=== PATIENT | female | born 1990 | race African-American/Black ===

== ENCOUNTER → 2017-10-08 09:02 | Outpatient (CLI) | payer OTHER, MEDICAID, SELFPAY ==
--- NOTE | 2017-10-08 | DI.US.S_ITS ---
PROCEDURE: US OB >= 14 WEEKS FETUS INDICATIONS: ANATOMY OUTSIDE/PRIOR DATING DATA: Last menstrual period (LMP): Not available. LMP-based estimated date of delivery (SHEEBA): Not available. First dating scan (date and location): 09/28/17. Estimated date of delivery (SHEEBA) from first dating scan: 12/27/17. TECHNIQUE: Real-time scanning was performed of the fetus, with image documentation and biometric measurements. Endovaginal scanning: Not necessary for this study COMPARISON: None. FINDINGS: General: A single living intrauterine gestation is present. Presentation: Breech rotating to transverse head right Placenta: Placental position is anterior, without previa. Amniotic fluid index: 16.6 cm, normal range is 5-24 cm. heart rate: 150 beats per minute. Maternal cervical canal: 3.3 cm long. Normal lower limit is 2.5 cm. biometrics: Biparietal diameter: 7.1 cm, 20 weeks 3 days Head circumference: 26.8 cm, 29 weeks 1 day Abdominal circumference: 24.3 cm, 20 weeks 4 days Femur length: 5.3 cm, 20 weeks 1 day Estimated gestational age from initial scan: not applicable. Composite gestational age from present scan: 28 weeks 4 days Estimated weight and percentile: 1237 g. Measurement variability for biometric dating: +/- 7 days from 14 weeks to 15 weeks 6 days gestation, +/- 10 days from 16 weeks to 21 weeks 6 days gestation, +/- 2 weeks from 22 weeks to 27 weeks 6 days gestation, +/- 3 weeks for 28 weeks gestation or later. weight reference: 4500 g or EFW >90/95% is considered macrosomia or large for gestational age. EFW <10% is small for gestational age. EFW 5% or less is considered intra-uterine growth restriction. Anatomic survey: Neuro: Ventricles are non-dilated at less than 10 mm. Cisterna magna is normal at 3-11 mm. Cerebellum is normal in size and morphology. Nuchal skin fold: Normal at less than 6 mm between 14-21 weeks gestational age. Face: Nose and lips, facial profile are normal. Spine: No evidence for spina bifida. Heart: 4-chambered heart is present, with normal ventricular outflow tracts. Diaphragm: Diaphragm is intact. Stomach: Left-sided stomach is present. Kidneys: No hydronephrosis. Normal is less than 5 mm in 2nd trimester, less than 7 mm in 3rd trimester. Cord: 3-vessel cord has orthotopic insertion. Bladder: Normal in size. Extremities: All 4 extremities identified. IMPRESSION: No comparisons. Current estimated age is 28 weeks 4 days, and the delivery date is projected to be centered on 12/27/17. Quality of anatomic visualization is somewhat limited by the advanced gestational age that this study is performed on. Axis anatomic survey is performed at approximately 21 weeks gestation. Dictated by: Cipriano Willis M.D. on 10/08/2017 at 12:44 Approved by: Cipriano Willis M.D. on 10/08/2017 at 12:48
== END ==
PROVIDERS: Visit Provider Midwife
DX: Z34.93 Encounter for supervision of normal pregnancy, unspecified, third trimester (principal); Z3A.38 38 weeks gestation of pregnancy
CPT/HCPCS: 76811

== ENCOUNTER → 2018-01-17 16:27 | Outpatient (CLI) | payer OTHER, MEDICAID, SELFPAY ==
--- NOTE | 2018-01-17 | DI.US.S_ITS ---
PROCEDURE: US PERIPH VENOUS LOW EXTREM BI INDICATIONS: BILATERAL LEG PAIN TECHNIQUE: Real-time imaging, as well as color and pulse Doppler interrogation, were performed of the deep veins of both legs from the inguinal ligament to the popliteal fossa. COMPARISON: None. FINDINGS: The deep veins are normally compressible, and free of intraluminal thrombus. Color and pulse Doppler demonstrate normal phasic intravascular flow. There is normal augmentation response to distal compression maneuver. 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 IMPRESSION: 1. No evidence of DVT in visualized right lower extremity veins. 2. 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 Dictated by: Erlin De Leon M.D. on 01/17/2018 at 17:01 Approved by: Erlin De Leon M.D. on 01/17/2018 at 17:06
== END ==
PROVIDERS: Visit Provider Internal Medicine Medical Oncology
DX: M79.605 Pain in left leg (principal); M79.604 Pain in right leg; I83.811 Varicose veins of right lower extremity with pain
CPT/HCPCS: 93970